=== PATIENT | female | born 1955 | race African-American/Black ===

== ENCOUNTER 2017-02-04 11:06 | Emergency (ER) | payer OTHER ==
[~2017-02-04] VITALS: Ht 165.1 cm; Wt 80.0 kg
[~2017-02-04 11:06] MED LIST: HAL5 PO; HYDR-4446 PO; PRED10TA5 PO
[2017-02-04 11:09] VITALS: BP 135/91
[2017-02-04] MEDS ORDERED: KETOROLAC 60 MG/2 ML VIAL IM ONE (11:25)
[2017-02-04 11:50] VITALS: BP 139/96
== END 2017-02-04 11:50 | disposition home or self-care (01) ==
LOC: MED 11:06
DX: R68.84 Jaw pain (principal); K21.9 Gastro-esophageal reflux disease without esophagitis; I10 Essential (primary) hypertension; F20.9 Schizophrenia, unspecified; F17.210 Nicotine dependence, cigarettes, uncomplicated; Z79.899 Other long term (current) drug therapy
CPT/HCPCS: 96372; 99283; J1885

== ENCOUNTER 2017-04-19 11:26 | Emergency (ER) | payer OTHER ==
[~2017-04-19] VITALS: Ht 165.1 cm; Wt 76.9 kg
[~2017-04-19 11:26] MED LIST changes: -HYDR-4446 PO; +HYDR-4922 PO
[2017-04-19 11:30] VITALS: BP 137/88
--- NOTE | 2017-04-19 11:51 | NUR ---
Patient to bed 07.
--- NOTE | 2017-04-19 11:51 | NUR ---
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 I DON'T REMEMBER ALL THE NAMES"; DENIES N/V/D; SKIN IS PINK/WARM/DRY; AAOX4 WITH EVEN AND STEADY GAIT; LUNGS CLEAR BL; HR EVEN AND REGULAR; PT DENIES ANY FEVER, CP, SOB, OR COUGH AT THIS TIME; PATIENT STATES PAIN OF 5/10 AT THIS TIME; VSS; PATIENT POSITIONED FOR COMFORT; HOB ELEVATED; BEDRAILS UP X2; BED DOWN. ER MD MADE AWARE OF PT STATUS.
--- NOTE | 2017-04-19 12:23 | NUR ---
DR VIVEROS EVALUATING AAO PT AT BEDSIDE
[2017-04-19] MEDS ORDERED: KETOROLAC 60 MG/2 ML VIAL IM ONE (12:30)
--- NOTE | 2017-04-19 12:45 | NUR ---
PT TAKEN OFF THE UNIT FOR CT OF THE HEAD AND FACE VIA GURNEY BY EQUIPMENT TECHNICIAN PASTOR
--- NOTE | 2017-04-19 13:39 | NUR ---
PT SLEEPING COMFORTABLY ON BED, NO ACUTE DISTRESS NOTED, WILL CONTINUE TO MONITOR
[2017-04-19 14:01] VITALS: BP 121/82
--- NOTE | 2017-04-19 14:01 | NUR ---
Note sarahi in EDM - 04/19/17 at 1421 by ARMIDA Patient discharged with v/s stable. Written and verbal after care instructions given and explained. Patient alert, oriented and verbalized understanding of instructions. Ambulatory with steady gait. All questions addressed prior to discharge. ID band removed. Patient advised to follow up with PMD. Rx of GABAPENTIN given. Patient educated on indication of medication including possible reaction and side effects. Opportunity to ask questions provided and answered.
== END 2017-04-19 14:21 | disposition home or self-care (01) ==
LOC: MED 11:26
DX: K13.79 Other lesions of oral mucosa (principal); G89.29 Other chronic pain; R51 Headache; K21.9 Gastro-esophageal reflux disease without esophagitis; I10 Essential (primary) hypertension; Z79.899 Other long term (current) drug therapy
CPT/HCPCS: 70450; 70486; 96372; 99284; J1885